=== PATIENT | female | born 1985 ===

== ENCOUNTER 2020-10-03 12:44 | Emergency (ER) | payer BC, MEDICAID ==
[2020-10-03 13:55] VITALS: BP 136/96
[2020-10-03] MEDS ORDERED: oxyCODONE /ACETAMINOPHEN 5-325MG TAB PO ONE (16:06)
[2020-10-03] MEDS ORDERED: IBUPROFEN 800 MG TAB PO STA (16:06)
--- NOTE | 2020-10-03 16:07 | Emergency Department Report ---
ED General Adult HPI - General Chief complaint: Dental/Oral Stated complaint: MOUTH PAIN, HEADACHE, SWOLLEN FACE Time Seen by Provider: 10/03/20 15:30 Source: patient Mode of arrival: Ambulatory Limitations: No Limitations - History of Present Illness Initial comments: 35-year-old -[place] female patient presents with complaints of left upper dental pain starting a few days ago. Patient states the pain began after she was bitten to something and part of her tooth broke off. She states the same tooth had already been fractured with the deep dental cavity. Patient states she now has facial swelling and rates her pain as a 10/10 in severity. Pain not improved with Tylenol and ibuprofen per patient. Patient reports she did make an appointment with the dental specialist for 10/13/2020. She denies any fever/chills/sweats, or difficulty opening her jaw. - Related Data Previous Rx's Medication Instructions Recorded Last Taken Type Acetaminophen/Codeine [Tylenol 1 tab PO Q8H PRN #8 tab 10/03/20 Unknown Rx /Codeine # 3 tab] Clindamycin [Clindamycin CAP] 300 mg PO Q6H 10 Days #40 capsule 10/03/20 Unknown Rx Ibuprofen [Motrin 800 MG tab] 800 mg PO Q8HR PRN #21 tablet 10/03/20 Unknown Rx Allergies Allergy/AdvReac Type Severity Reaction Status Date / Time No Known Allergies Allergy Unverified 10/03/20 13:52 ED Review of Systems ROS: Stated complaint: MOUTH PAIN, HEADACHE, SWOLLEN FACE Other details as noted in HPI Constitutional: denies: diaphoresis, fever, malaise ENT: dental pain. denies: throat pain Respiratory: denies: cough, shortness of breath Cardiovascular: denies: chest pain Hematological/Lymphatic: denies: swollen glands ED Past Medical Hx - Past Medical History Previous Medical History?: No - Surgical History Past Surgical History?: Yes Additional Surgical History: - Medications Home Medications: Home Medications Medication Instructions Recorded Confirmed Last Taken Type Acetaminophen/Codeine [Tylenol 1 tab PO Q8H PRN #8 tab 10/03/20 Unknown Rx /Codeine # 3 tab] Clindamycin [Clindamycin CAP] 300 mg PO Q6H 10 Days #40 capsule 10/03/20 Unknown Rx Ibuprofen [Motrin 800 MG tab] 800 mg PO Q8HR PRN #21 tablet 10/03/20 Unknown Rx ED Physical Exam - General Limitations: No Limitations General appearance: alert, in no apparent distress - Head Head exam: Present: atraumatic, normocephalic - Eye Eye exam: Present: normal appearance. Absent: scleral icterus - Expanded ENT Exam Expanded Mouth exam: Absent: drooling, trismus Teeth exam: Present: dental caries 1 - Fractured, Dental Tenderness, Other (Deep dental cavity noted; surrounding erythema and swelling of the gums noted without obvious abscess; minimal swelling of the overlying face is noted without cellulitis) - Respiratory Respiratory exam: Absent: respiratory distress - Cardiovascular Cardiovascular Exam: Present: regular rate - Neurological Exam Neurological exam: Present: alert, oriented X3, normal gait - Psychiatric Psychiatric exam: Present: normal affect, normal mood - Skin Skin exam: Present: warm, dry, intact, normal color. Absent: rash ED Course Vital Signs 10/03/20 13:53 Temperature 98.5 F Pulse Rate 87 Respiratory 20 Rate Blood Pressure 136/96 O2 Sat by Pulse 100 Oximetry ED Medical Decision Making - Medical Decision Making 35-year-old -Al[place] female patient presents with complaints of left upper dental pain starting a few days ago. Patient states the pain began after she was bitten to something and part of her tooth broke off. She states the same tooth had already been fractured with the deep dental cavity. Patient states she now has facial swelling and rates her pain as a 10/10 in severity. Pain not improved with Tylenol and ibuprofen per patient. Patient reports she did make an appointment with the dental specialist for 10/13/2020. She denies any fever/chills/sweats, or difficulty opening her jaw. Dental infection noted on exam with mild overlying facial swelling. Will treat with clindamycin. Patient to follow-up with her dental specialist as scheduled 10/13/2020 or sooner if possible. Discussed signs and symptoms that should prompt immediate return to the emergency department in detail with patient who verbalized understanding. Patient is well-appearing, her vitals are within normal limits, she is stable for discharge home. Critical care attestation.: If time is entered above; I have spent that time in minutes in the direct care of this critically ill patient, excluding procedure time. ED Disposition Clinical Impression: Dental infection Disposition: DC- TO HOME OR SELFCARE Is pt being admited?: No Condition: Stable Instructions: Dental Abscess Prescriptions: Clindamycin [Clindamycin CAP] 300 mg PO Q6H 10 Days #40 capsule Ibuprofen [Motrin 800 MG tab] 800 mg PO Q8HR PRN #21 tablet PRN Reason: pain Acetaminophen/Codeine [Tylenol /Codeine # 3 tab] 1 tab PO Q8H PRN #8 tab PRN Reason: Pain , Severe (7-10) Forms: Work/School Release Form(ED)
== END 2020-10-03 17:14 | disposition home or self-care (01) ==
LOC: ED 12:44
DX: K04.7 Periapical abscess without sinus (principal); Z98.890 Other specified postprocedural states; Z79.899 Other long term (current) drug therapy
CPT/HCPCS: 99282